=== PATIENT | male | born 1995 | race Caucasian/White ===

== ENCOUNTER → 2020-12-07 | Outpatient (CLI) | payer BC | LOC: KOH-I 10:18 | DX: K76.0 Fatty (change of) liver, not elsewhere classified (principal); K82.4 Cholesterolosis of gallbladder | CPT/HCPCS: 76700 ==

== ENCOUNTER → 2021-01-28 | Outpatient (CLI) | payer BC | LOC: CT 01-25 11:30 | DX: K76.89 Other specified diseases of liver (principal); K80.20 Calculus of gallbladder without cholecystitis without obstruction | CPT/HCPCS: 74170; Q9967 ==

== ENCOUNTER → 2021-05-16 | Outpatient (CLI) | payer BC | LOC: EXRD 11:30 | DX: N50.812 Left testicular pain (principal) | CPT/HCPCS: 76870 ==

== ENCOUNTER → 2021-06-12 | Outpatient (CLI) | payer BC | LOC: EXRD 08:00 | DX: R10.11 Right upper quadrant pain (principal); K80.20 Calculus of gallbladder without cholecystitis without obstruction; K76.9 Liver disease, unspecified; K76.0 Fatty (change of) liver, not elsewhere classified | CPT/HCPCS: 76705 ==